=== PATIENT | male | born 1945 | race Caucasian/White ===

== ENCOUNTER → 2019-04-10 15:59 | Outpatient (CLI) | payer MEDICARE, MEDICAID, SELFPAY ==
[2019-04-10 16:56] LABS: Add Manual Diff / Slide Review NO; Basophils Absolute Auto 100 /uL (0-100); Basophils Percent Auto 1.3 % (0-2); Eosinophils Absolute Auto 100 /uL (0-450); Hematocrit 41.1 % (41-53); Hemoglobin 14.1 g/dL (13.5-17.5); Lymphocytes Absolute Auto 1000 /uL (1100-4500); Lymphocytes Percent Auto 24.5 % (25-40); Mean Corpuscular HGB Conc 34.3 % (30-36); Mean Corpuscular Hemoglobin 30.4 PG (26-34); Mean Corpuscular Volume 88.7 fL (80-100); Monocytes Absolute Auto 400 /uL (0-900); Monocytes Percent Auto 10.7 % (3-14); Neutrophils Absolute Auto 2500 /uL (1500-7000); Neutrophils Percent Auto 60.5 % (50-75); Platelet Count 163 X10^3/uL (150-400); Red Blood Cell Count 4.63 X10^6/uL (4.5-5.9); Red Cell Distribution Width 13.5 % (11.6-14.8); White Blood Cell Count 4.1 X10^3/uL (4.5-11.0)
[2019-04-10 17:47] LABS: Alanine Aminotransferase 12 IU/L (21-72); Albumin 3.8 g/dL (3.5-5.0); Albumin Globulin Ratio 1.6 (1.0-2.8); Alkaline Phosphatase 91 U/L (38-126); Aspartate Aminotransferase 21 IU/L (17-59); BUN Creatinine Ratio 18.8 (6-22); Bilirubin Total 0.8 mg/dL (0.2-1.3); Blood Urea Nitrogen 15 mg/dL (9-20); Calcium 9.4 mg/dL (8.4-10.2); Carbon Dioxide 33 mmol/L (22-32); Chloride 103 mmol/L (98-107); Estimated Glomerular Filt Rate > 60.0 mL/min (>60); Globulin 2.4 g/dL (1.7-4.1); Glucose 65 mg/dL (80-110); HEMOLYSIS < 15 (0-50); Potassium 4.8 mmol/L (3.4-5.1); Sodium 142 mmol/L (137-145); Total Protein 6.2 g/dL (6.3-8.2)
[2019-04-10 18:16] LABS: Thyroid Stimulating Hormone 2.21 uIU/mL (0.47-4.68)
== END ==
PROVIDERS: Family Provider Family Medicine; PCP Family Medicine; Visit Provider Family Medicine
DX: E03.9 Hypothyroidism, unspecified (principal)
CPT/HCPCS: 36415; 80053; 84443; 85025

== ENCOUNTER → 2020-05-25 12:07 | Outpatient (CLI) | payer MEDICARE, MEDICAID, SELFPAY ==
[2020-05-25 14:22] LABS: Thyroid Stimulating Hormone 2.73 uIU/mL (0.47-4.68)
== END ==
PROVIDERS: Family Provider Family Medicine; PCP Family Medicine; Referring Provider Family Medicine; Visit Provider Family Medicine
DX: E03.9 Hypothyroidism, unspecified (principal)
CPT/HCPCS: 36415; 84443

== ENCOUNTER → 2021-02-09 10:15 | Outpatient (CLI) | payer MEDICARE, MEDICAID, SELFPAY | PROVIDERS: Family Provider Family Medicine; PCP Family Medicine; Referring Provider Ophthalmology; Visit Provider Ophthalmology | DX: H10.021 Other mucopurulent conjunctivitis, right eye (principal) | CPT/HCPCS: 87070; 87077; 87205 ==

== ENCOUNTER → 2021-06-10 08:52 | Outpatient (CLI) | payer MEDICARE, MEDICAID, SELFPAY ==
[2021-06-10 09:44] LABS: Add Manual Diff / Slide Review NO; Basophils Absolute Auto 100 /uL (0-100); Basophils Percent Auto 1.2 % (0-2); Eosinophils Absolute Auto 100 /uL (0-450); Eosinophils Percent Auto 1.5 % (2-4); Hematocrit 42.2 % (41-53); Hemoglobin 14.3 g/dL (13.5-17.5); Lymphocytes Absolute Auto 1000 /uL (1100-4500); Lymphocytes Percent Auto 17.1 % (25-40); Mean Corpuscular HGB Conc 33.8 % (30-36); Mean Corpuscular Hemoglobin 30.4 PG (26-34); Mean Corpuscular Volume 89.8 fL (80-100); Monocytes Absolute Auto 500 /uL (0-900); Monocytes Percent Auto 8.1 % (3-14); Neutrophils Absolute Auto 4200 /uL (1500-7000); Neutrophils Percent Auto 72.1 % (50-75); Platelet Count 159 X10^3/uL (150-400); Red Cell Distribution Width 13.8 % (11.6-14.8); White Blood Cell Count 5.8 X10^3/uL (4.5-11.0)
[2021-06-10 10:02] LABS: Alanine Aminotransferase 12 IU/L (<50); Albumin 3.8 g/dL (3.5-5.0); Albumin Globulin Ratio 1.5 (1.0-2.8); Alkaline Phosphatase 93 U/L (38-126); Aspartate Aminotransferase 25 IU/L (17-59); BUN Creatinine Ratio 19.8 (6-22); Bilirubin Total 0.8 mg/dL (0.2-1.3); Blood Urea Nitrogen 17 mg/dL (9-20); Calcium 9.2 mg/dL (8.4-10.2); Carbon Dioxide 31 mmol/L (22-32); Chloride 106 mmol/L (98-107); Cholesterol 97 mg/dL (140-199); Estimated Glomerular Filt Rate > 60.0 mL/min (>60); Globulin 2.5 g/dL (1.7-4.1); Glucose 46 mg/dL (80-110); HDL Cholesterol 49 mg/dL (40-60); HEMOLYSIS 15 (0-50); LDL Cholesterol Calculated 38 mg/dL (<100); Potassium 3.8 mmol/L (3.4-5.1); Sodium 141 mmol/L (137-145); Total Protein 6.3 g/dL (6.3-8.2); Triglycerides 50 mg/dL (35-150)
[2021-06-10 10:48] LABS: TSH w/ Reflex to FT4 4.28 uIU/mL (0.47-4.68)
== END ==
PROVIDERS: Family Provider Family Medicine; PCP Family Medicine; Referring Provider Family Medicine; Visit Provider Family Medicine
DX: E03.9 Hypothyroidism, unspecified (principal); Z13.220 Encounter for screening for lipoid disorders; Z76.89 Persons encountering health services in other specified circumstances
CPT/HCPCS: 36415; 80053; 80061; 84443; 85025

== ENCOUNTER → 2023-07-06 09:53 | Outpatient (CLI) | payer MEDICARE, MEDICAID, SELFPAY ==
[2023-07-06 10:32] LABS: Add Manual Diff / Slide Review NO; Basophils Absolute Auto 100 /uL (0-100); Basophils Percent Auto 1.1 % (0-2); Eosinophils Absolute Auto 100 /uL (0-450); Eosinophils Percent Auto 2.3 % (2-4); Hematocrit 41.1 % (41-53); Hemoglobin 14.2 g/dL (13.5-17.5); Lymphocytes Absolute Auto 900 /uL (1100-4500); Lymphocytes Percent Auto 15.5 % (25-40); Mean Corpuscular HGB Conc 34.5 % (30-36); Mean Corpuscular Hemoglobin 31.2 PG (26-34); Mean Corpuscular Volume 90.5 fL (80-100); Monocytes Absolute Auto 500 /uL (0-900); Monocytes Percent Auto 7.9 % (3-14); Neutrophils Absolute Auto 4400 /uL (1500-7000); Neutrophils Percent Auto 73.2 % (50-75); Platelet Count 161 X10^3/uL (150-400); Red Blood Cell Count 4.54 X10^6/uL (4.5-5.9); Red Cell Distribution Width 13.7 % (11.6-14.8)
[2023-07-06 11:08] LABS: Appearance Urine UA CLEAR; Bilirubin Urine UA NEGATIVE (NEGATIVE); Color Urine UA YELLOW; Glucose Urine UA NEGATIVE (Negative); Ketones Urine UA NEGATIVE (NEGATIVE); Leukocyte Esterase Urine UA NEGATIVE (NEGATIVE); Nitrite Urine UA NEGATIVE (Negative); Occult Blood Urine UA NEGATIVE (Negative); Protein Urine UA NEGATIVE (Negative); Specific Gravity Urine UA 1.015 (1.000-1.035); Urobilinogen Urine UA 0.2 E.U./dL (0.2)
[2023-07-06 11:31] LABS: Bacteria Urine None Seen; Culture Indicated Urine Cult Not Indicated; RBC Urine None Seen (0-5/HPF); Squamous Epithelial Cell Urine None Seen (0-5/HPF); WBC Urine None Seen (0-5/HPF)
[2023-07-06 11:38] LABS: Alanine Aminotransferase 16 IU/L (<50); Albumin 3.8 g/dL (3.5-5.0); Albumin Globulin Ratio 1.5 (1.0-2.8); Alkaline Phosphatase 100 U/L (38-126); Aspartate Aminotransferase 22 IU/L (17-59); BUN Creatinine Ratio 20.9 (6-22); Bilirubin Total 0.6 mg/dL (0.2-1.3); Blood Urea Nitrogen 18 mg/dL (9-20); Calcium 9.4 mg/dL (8.4-10.2); Carbon Dioxide 30 mmol/L (22-32); Chloride 108 mmol/L (98-107); Estimated Glomerular Filt Rate > 60 mL/min (>60); Globulin 2.5 g/dL (1.7-4.1); HEMOLYSIS < 15 (0-50); Lipase 157 U/L (23-300); Potassium 3.8 mmol/L (3.4-5.1); Sodium 141 mmol/L (137-145); Total Protein 6.3 g/dL (6.3-8.2)
[2023-07-06 11:54] LABS: Glucose 37 mg/dL (80-110)
[2023-07-06 11:59] LABS: Prostate Specific Antigen Scrn 1.01 ng/mL (0.1-4.0)
[2023-07-06 12:13] LABS: TSH w/ Reflex to FT4 3.69 uIU/mL (0.47-4.68)
[2023-07-06 12:37] LABS: Hemoglobin A1C% w Est Avg Glu < 4.0 % (4.0-6.0)
[2023-07-09 09:06] LABS: Insulin Level Total 13.8 uIU/mL (2.6-24.9)
[2023-07-12 09:51] LABS: Ketones (Beta-Hydroxybutyrate) 0.01 mmol/L (<0.27)
== END ==
PROVIDERS: Family Provider Family Medicine; PCP Family Medicine; Referring Provider Pediatrics; Visit Provider Pediatrics
DX: E16.2 Hypoglycemia, unspecified (principal); F81.9 Developmental disorder of scholastic skills, unspecified; Z13.220 Encounter for screening for lipoid disorders; E03.9 Hypothyroidism, unspecified; R73.9 Hyperglycemia, unspecified; H40.9 Unspecified glaucoma; Z12.5 Encounter for screening for malignant neoplasm of prostate
CPT/HCPCS: 36415; 80053; 81001; 82009; 83036; 83525; 83690; 84443; 85025; G0103

== ENCOUNTER → 2023-07-14 09:27 | Outpatient (CLI) | payer MEDICARE, MEDICAID, SELFPAY ==
[2023-07-14 11:10] LABS: Free T3, Triiodothyronine Free 3.62 pg/mL (2.77-5.27); Free T4, Direct Thyroxine 1.02 ng/dL (0.78-2.19)
[2023-07-14 11:24] LABS: Cortisol AM (Before 10AM) 2.81 ug/dL (4.46-22.7)
== END ==
PROVIDERS: Family Provider Family Medicine; PCP Family Medicine; Referring Provider Pediatrics; Visit Provider Pediatrics
DX: E03.9 Hypothyroidism, unspecified (principal); E16.2 Hypoglycemia, unspecified; F81.9 Developmental disorder of scholastic skills, unspecified; Z13.220 Encounter for screening for lipoid disorders
CPT/HCPCS: 36415; 82533; 84439; 84481

== ENCOUNTER 2024-03-11 11:18 | Inpatient (IN) | payer MEDICARE, MEDICAID, SELFPAY ==
[2024-03-11] VITALS (41 sets, daily range): BP systolic 132–183; BP diastolic 65–107; PULSE 59–140; RESP 10–46; TEMP 27–37.5; O2SAT 33–100; BMI 27.1
--- NOTE | 2024-03-11 11:40 | ED.GENADULT ---
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), medical power of staff attorney niece is predominant historian, multiple family members with recent upper respiratory symptoms, patient noted to have cough at home for the last 5 days, this morning seems to be having a really hard time breathing, arrival in respiratory distress, hypoxia, not usually on oxygen Per niece at bedside, patient has advanced directives, DNR/DNI, they are comfortable with respiratory support measures short of mechanical ventilation Related Data Home Medications Medication Instructions Recorded Confirmed brimonidine 0.2 %-timolol 0.5 % 1 drp ophthalmic (eye) BID Glaucoma 07/21/23 03/11/24 eye drops (Combigan) dorzolamide 2 % eye drops 1 drp EYE-BOTH TID 07/21/23 03/11/24 latanoprost 0.005 % eye drops 1 drp ophthalmic (eye) BEDTIME 07/21/23 03/11/24 (Xalatan) netarsudil 0.02 % eye drops 1 drp ophthalmic (eye) BEDTIME 07/21/23 03/11/24 (Rhopressa) Glaucoma Previous Rx's Medication Instructions Recorded glucagon 3 mg/actuation nasal spray 3 mg intranasal ONCE #2 ea 07/06/23 levothyroxine 25 mcg tablet 25 mcg PO DAILY #90 tabs 11/23/23 Allergies Allergy/AdvReac Type Severity Reaction Status Date / Time iodine [IODINE] Allergy Unknown Verified 07/21/23 11:47 shellfish derived Allergy Unknown Verified 07/21/23 11:47 [SHELLFISH DERIVED] Patient History Medical History Hyperglycemia Hypoglycemia Physician orders for life-sustaining treatment (POLST) form indicates patient wish for pc-zup-loabsqfmyeg status Cognitive developmental delay Screening for hyperlipidemia Hypothyroidism (acquired) History of blood transfusion (~2009) Partial blindness (1945) Developmental disorder (1945) Hemorrhoids (~2009) Glaucoma (1945) Hearing loss (1945) Surgical History History of colonoscopy (01/12/12) History of eye surgery Family History Father Diabetes mellitus Mother Cancer Leukemia Hypertension Sister Age: 80 Stroke Hemorrhagic stroke Melanoma Sister No problems noted. Sister No problems noted. Social History household members: family Smoking Status: Never smoker Smoking Status: Never smoker Exam Narrative Exam Narrative: GENERAL: History of developmental delay, unclear verbal baseline. Arriving in severe respiratory distress. HEAD: Atraumatic. Normocephalic. EYES: Right prosthetic eye noted, left eye with severe glaucoma, near blindness per knees. No scleral icterus. No injection or drainage. Hearing aids in place. ENT: Nose without bleeding, purulent drainage. Throat without erythema, tonsillar hypertrophy or exudate. Airway patent. NECK: Trachea midline. Non tender CARDIOVASCULAR: Fast rate regular rhythm without murmurs, gallops, or rubs. RESPIRATORY: Wheezes bilateral, with some bibasilar crackles, increased work of breathing. But alert looking around GASTROINTESTINAL: Abdomen soft, non-tender, nondistended. EXTREMITIES: No edema or joint tenderness. No bilateral lower extremity edema. BACK: Nontender without deformity or crepitance. No flank tenderness. NEURO: AOx3. Moving extremities but not to command, history of deafness and near blindness noted, history of developmental delay noted SKIN: No rash or erythema of visible areas Initial Vital Signs Initial Vital Signs: Vital Signs Temperature 98.1 F 03/11/24 11:40 Pulse Rate 140 H 03/11/24 11:40 Respiratory Rate 32 H 03/11/24 11:40 Blood Pressure 175/107 H 03/11/24 11:40 Pulse Oximetry 85 L 03/11/24 11:40 Oxygen Delivery Method Room Air 03/11/24 11:40 Course Orders Ordered: ED Orders 03/11/24 11:40 Complete Blood Count AUTO DIFF Stat Comprehensive Metabolic Panel Stat Lactate (Lactic Acid) Stat Lipase Stat Troponin & CK Cardiac Panel Stat BiPAP Ventilatory Support RT PROTOCOL 03/11/24 11:45 Arterial Blood Gas Stat 03/11/24 11:46 XR chest 1V Stat Blood Culture Stat 03/11/24 11:53 Respiratory Panel (Film Array) Stat Albuterol (Albuterol 2.5 Mg/3 Ml Neb (Adult)) 2.5 mg INH [id number] PRN PRN Reason: Shortness Of Breath Famotidine (Famotidine 20 Mg/2 Ml Vial) 20 mg IV Q24H [facility] Heparin Sodium (Porcine) (Heparin 5,000 Unit/Ml Vial) 5,000 unit SUBCUT BID [facility] Last Admin: 03/11/24 14:16 Dose: 5,000 unit Documented By: IVORY Dextrose/Sodium Chloride (Dextrose 5%-0.9% Ns) 1,000 mls @ 100 mls/hr IV CONT [facility] Last Admin: 03/11/24 14:16 Dose: 100 mls/hr Documented By: IVORY Naloxone HCl (Naloxone 0.4 Mg/Ml Vial) 0.2 mg IV Q2MIN PRN PRN Reason: Opiate Reversal Discontinued Medications Albuterol (Albuterol 2.5 Mg/3 Ml Neb (Adult)) 2.5 mg INH Q20M [facility] Stop: 03/11/24 12:56 Last Admin: 03/11/24 13:02 Dose: 2.5 mg Documented By: Admin: 03/11/24 12:37 Dose: 2.5 mg Documented By: Admin: 03/11/24 12:17 Dose: 2.5 mg Documented By: FRANKIE Albuterol/Ipratropium (Albuterol/Ipratropium 3 Ml Ampul) 6 ml INH NOW ONE Stop: 03/11/24 11:39 Last Admin: 03/11/24 11:42 Dose: 6 ml Documented By: FRANKIE Sodium Chloride (Normal Saline 0.9%) 1,000 mls @ 150 mls/hr IV CONT [facility] Last Admin: 03/11/24 18:28 Dose: Not Given Documented By: IVORY Ceftriaxone Sodium 1,000 mg/ (Sodium Chloride) 100 mls @ 200 mls/hr IV NOW ONE Stop: 03/11/24 12:23 Last Infusion: 03/11/24 18:26 Dose: Infused Documented By: Admin: 03/11/24 12:39 Dose: 200 mls/hr Documented By: NADEEN Azithromycin 500 mg/ Dextrose 250 mls @ 250 mls/hr IV NOW ONE Stop: 03/11/24 12:24 Last Infusion: 03/11/24 18:26 Dose: Infused Documented By: Admin: 03/11/24 12:41 Dose: 250 mls/hr Documented By: NADEEN Sodium Chloride (Normal Saline 0.9%) 1,000 mls @ 1,000 mls/hr IV BOLUS ONE Stop: 03/11/24 13:24 Last Infusion: 03/11/24 18:26 Dose: Infused Documented By: Admin: 03/11/24 12:41 Dose: 1,000 mls/hr Documented By: NADEEN Vital Signs Vital signs: Vital Signs - 8 hr 03/11/24 12:17 03/11/24 12:30 03/11/24 12:31 Temperature Pulse Rate 116 H Respiratory Rate 30 H Blood Pressure 146/68 H Pulse Oximetry 99 Oxygen Delivery Method BiPAP Fraction of Inspired Oxygen 60 03/11/24 12:31 03/11/24 12:37 03/11/24 12:59 Temperature Pulse Rate 114 H 109 H Respiratory Rate 28 H 26 H Blood Pressure Pulse Oximetry 99 100 97 Oxygen Delivery Method BiPAP BiPAP BiPAP Fraction of Inspired Oxygen 03/11/24 13:00 03/11/24 13:00 Temperature 99.5 F Pulse Rate 110 H Respiratory Rate 26 H Blood Pressure 142/70 H 152/94 H Pulse Oximetry 97 Oxygen Delivery Method Fraction of Inspired Oxygen Medical Decision Making Lab Data 03/11/24 11:40 03/11/24 11:40 Labs: Lab Results 03/11/24 03/11/24 03/11/24 Range/Units 11:40 11:45 11:53 WBC 11.6 H (4.5-11.0) X10^3/uL RBC 4.80 (4.5-5.9) X10^6/uL Hgb 15.3 (13.5-17.5) g/dL Hct 45.5 (41-53) % MCV 94.7 (80-100) fL MCH 31.8 (26-34) PG MCHC 33.5 (30-36) % RDW 13.6 (11.6-14.8) % Plt Count 227 (150-400) X10^3/uL Neut % (Auto) 75.4 H (50-75) % Lymph % (Auto) 13.9 L (25-40) % Tompkins % (Auto) 9.7 (3-14) % Eos % (Auto) 0.4 L (2-4) % Baso % (Auto) 0.6 (0-2) % Neut # (Auto) 8700 H (2896-4609) /uL Lymph # (Auto) 1600 (9725-0808) /uL Tompkins # (Auto) 1100 H (0-900) /uL Eos # (Auto) 0 (0-450) /uL Baso # (Auto) 100 (0-100) /uL ABG Sample Site Right radial ABG pH 7.28 L* (7.35-7.45) ABG pCO2 43.4 (35-45) mmHg ABG pO2 61 L (80-100) mmHg ABG HCO3 21 L (23-27) mmol/L ABG Total CO2 22 L (23-27) mmol/L ABG O2 Saturation 88 L (95-100) % ABG Base Excess -6.0 L (-2-3) mmol/L FiO2 52 Sodium 138 (137-145) mmol/L Potassium 3.8 (3.4-5.1) mmol/L Chloride 104 (98-107) mmol/L Carbon Dioxide 24 (22-32) mmol/L BUN 24 H (9-20) mg/dL Creatinine 1.21 (0.66-1.25) mg/dL Estimated GFR > 60 (>60) mL/min BUN/Creatinine Ratio 19.8 (6-22) Glucose 303 H (80-110) mg/dL Lactate 5.1 H* (0.7-2.1) mmol/L Calcium 8.6 (8.4-10.2) mg/dL Total Bilirubin 1.4 H (0.2-1.3) mg/dL AST 48 (17-59) IU/L ALT 24 (<50) IU/L Alkaline Phosphatase 118 (38-126) U/L Total Creatine Kinase 88 (55-170) U/L Troponin I 0.104 H (0.01-0.034) ng/mL Total Protein 6.6 (6.3-8.2) g/dL Albumin 4.0 (3.5-5.0) g/dL Globulin 2.6 (1.7-4.1) g/dL Albumin/Globulin Ratio 1.5 (1.0-2.8) Lipase 120 (23-300) U/L Chlamy pneumoniae PCR Not detected (Not Detect) Adenovirus (PCR) Not detected (Not Detect) B.parapertussis DNA PCR Not detected (Not Detecte) Coronavirus OC43 (PCR) Not detected (Not Detect) Coronavirus HKU1 (PCR) Not detected (Not Detect) Coronavirus 229E (PCR) Not detected (Not Detect) SARS-CoV-2 (PCR) Not detected (Not Detecte) Coronavirus NL63 (PCR) Not detected (Not Detect) Human Metapneumovir PCR Detected H (Not Detect) Influenza Type A (PCR) Not detected (Not Detect) Influenza Type B (PCR) Not detected (Not Detect) M. pneumoniae (PCR) Not detected (Not Detect) Parainfluenza 1 (PCR) Not detected (Not Detect) Parainfluenza 2 (PCR) Not detected (Not Detect) Parainfluenza 3 (PCR) Not detected (Not Detect) Parainfluenza 4 (PCR) Not detected (Not Detect) RSV (PCR) Not detected (Not Detect) Entero/Rhino (PCR) Not detected (Not Detect) Imaging Data Chest x-ray: Radiologist's Impression: [address] [address] XRay Report Signed Patient: Itz Arnett MR#: [id number] : 1945 Acct:[id number] Age/Sex: 78 / M Date of Service: 03/11/24 Loc: [facility] Accession Number: [id number] Procedure: XR chest 1V Ordering Provider: Mario Reilly MD PROCEDURE: XR CHEST 1V INDICATIONS: chest pain TECHNIQUE: One view of the chest was acquired. COMPARISON: [facility], CHEST 2 VIEW, 04/16/2013, 12:40. FINDINGS: Surgical changes and devices: None. Lungs and pleura: Diffuse bilateral lung disease. No pleural effusions or pneumothorax. Mediastinum: Mediastinal contours appear normal. Heart size is normal. Bones and chest wall: No suspicious bony lesions. Overlying soft tissues appear unremarkable. IMPRESSION: Diffuse bilateral lung disease. Findings concerning for infectious process. Approved by: Paula Lubin M.D.,Ph.D. on 03/11/2024 at 12:12 [facility] Narrative Medical decision making narrative: 78-year-old male with developmental delay ( encephalopathy per knees, mother had rubella, has had near deafness decreased hearing both ears, prosthetic right eye, severe glaucoma left eye, able to communicate with niece in their own kind of internal family language), no known heart or lung problems, 5 days duration cough, increasing shortness of breath this morning, presenting in respiratory distress, hypoxia, increased work of breathing. DNR/DNI noted per medical [id number] nurse at bedside, however they are comfortable with other supportive measures including BiPAP noninvasive ventilation support if needed. SVN continuous albuterol/ipratropium, IV Solu-Medrol 125 mg, ABG requested, labs pending, respiratory swab requested. Respiratory therapist at bedside, consider BiPAP trial. ABG pending. ABG on non-rebreather sent, pH 7.282, pCO2 43.4, PaO2 61, base excess -6, bicarbonate 20, 88% Chest x-ray bilateral patchy infiltrates, COVID another respiratory swab results still pending. Blood cultures requested, IV ceftriaxone, IV azithromycin. Lactate 5.1 noted, blood cultures and antibiotics initiated, IV fluid bolus. Likely admission, patient/guardian aware Respiratory panel results still pending. Case discussed with hospitalist Dr. Clifton, accepts patient for admission to inpatient/ICU Respiratory panel negative for COVID and influenza, positive for human metapneumovirus noted. Added to admission diagnosis list Critical Care Time Critical Care Time Critical Care Time: Yes Total Critical Care Time: 45 Attestation: The high probability of a clinically significant, sudden or life threatening deterioration of the [cardiopulmonary] system(s) required my full and direct attention, intervention and personal management. The aggregate critical care time was [45] minutes. This time is in addition to time spent performing reported procedures but includes the following: [x] Data Review and interpretation [x] Patient assessment and monitoring of vital signs [x] Documentation [x] Medication orders and management Discharge Plan Departure Patient Disposition: Admitted As Inpatient Clinical Impression: Acute respiratory distress, Pneumonia, History of developmental delay, Hard of hearing, Nearly blind in one eye, Prosthetic eye globe, Severe sepsis, Hypoxia, Human metapneumovirus pneumonia Admit Date/Time: 03/11/24 13:00 Admit Provider: Michael Meza
[2024-03-11] MEDS: ALBUTEROL/IPRATROPIUM 3 ML AMPUL 6 ML INH (11:42)
--- NOTE | 2024-03-11 11:46 | DI.RAD.S_ITS ---
PROCEDURE: XR CHEST 1V INDICATIONS: chest pain TECHNIQUE: One view of the chest was acquired. COMPARISON: [facility], , CHEST 2 VIEW, 04/16/2013, 12:40. FINDINGS: Surgical changes and devices: None. Lungs and pleura: Diffuse bilateral lung disease. No pleural effusions or pneumothorax. Mediastinum: Mediastinal contours appear normal. Heart size is normal. Bones and chest wall: No suspicious bony lesions. Overlying soft tissues appear unremarkable. IMPRESSION: Diffuse bilateral lung disease. Findings concerning for infectious process. Approved by: Paula Lubin M.D.,Ph.D. on 03/11/2024 at 12:12
[2024-03-11 11:59] LABS: Add Manual Diff / Slide Review NO; Basophils Absolute Auto 100 /uL (0-100); Basophils Percent Auto 0.6 % (0-2); Eosinophils Absolute Auto 0 /uL (0-450); Eosinophils Percent Auto 0.4 % (2-4); Hematocrit 45.5 % (41-53); Hemoglobin 15.3 g/dL (13.5-17.5); Lymphocytes Absolute Auto 1600 /uL (1100-4500); Lymphocytes Percent Auto 13.9 % (25-40); Mean Corpuscular HGB Conc 33.5 % (30-36); Mean Corpuscular Hemoglobin 31.8 PG (26-34); Mean Corpuscular Volume 94.7 fL (80-100); Monocytes Absolute Auto 1100 /uL (0-900); Monocytes Percent Auto 9.7 % (3-14); Neutrophils Absolute Auto 8700 /uL (1500-7000); Neutrophils Percent Auto 75.4 % (50-75); Platelet Count 227 X10^3/uL (150-400); Red Cell Distribution Width 13.6 % (11.6-14.8); White Blood Cell Count 11.6 X10^3/uL (4.5-11.0)
[2024-03-11 12:13] LABS: Alanine Aminotransferase 24 IU/L (<50); Albumin Globulin Ratio 1.5 (1.0-2.8); Alkaline Phosphatase 118 U/L (38-126); Aspartate Aminotransferase 48 IU/L (17-59); BUN Creatinine Ratio 19.8 (6-22); Bilirubin Total 1.4 mg/dL (0.2-1.3); Blood Urea Nitrogen 24 mg/dL (9-20); Calcium 8.6 mg/dL (8.4-10.2); Carbon Dioxide 24 mmol/L (22-32); Chloride 104 mmol/L (98-107); Creatine Kinase 88 U/L (55-170); Estimated Glomerular Filt Rate > 60 mL/min (>60); Globulin 2.6 g/dL (1.7-4.1); Glucose 303 mg/dL (80-110); HEMOLYSIS 44 (0-50); Lipase 120 U/L (23-300); Potassium 3.8 mmol/L (3.4-5.1); Sodium 138 mmol/L (137-145); Total Protein 6.6 g/dL (6.3-8.2)
[2024-03-11 12:17] LABS: Lactate (Lactic Acid) 5.1 mmol/L (0.7-2.1)
[2024-03-11] MEDS: ALBUTEROL 2.5 MG/3 ML NEB (ADULT) INH ×3 (12:17→13:02)
[2024-03-11 12:24] LABS: Troponin I 0.104 ng/mL (0.01-0.034)
[2024-03-11 12:28] LABS: PCO2 ABG 43.4 mmHg (35-45); PO2 ABG 61 mmHg (80-100); pH ABG 7.28 (7.35-7.45)
[2024-03-11 12:29] LABS: Allen Test for ABG Passed? Yes, Passed; Blood Gas Collection Site Right Radial; Fractionated Inspired Oxygen 52; HCO3 ABG 21 mmol/L (23-27); Oxygen Saturation ABG 88 % (95-100); TCO2 ABG 22 mmol/L (23-27)
[2024-03-11] MEDS: cefTRIAXone 1,000 MG in SODIUM CHLORIDE 0.9% 100 ML 200 MG IV (12:39)
[2024-03-11] MEDS: AZITHROMYCIN 500 MG in DEXTROSE 5% IN WATER 250 ML 250 MG IV (12:41)
[2024-03-11] MEDS: SODIUM CHLORIDE 0.9% 1,000 ML 1000 ML IV (12:41)
[2024-03-11 13:06] LABS: Adenovirus Not Detected (Not Detect); B. parapertussis Not Detected (Not Detecte); Bordetella pertussis Not Detected (Not Detect); Chlamydophila pneumoniae Not Detected (Not Detect); Coronavirus 229E Not Detected (Not Detect); Coronavirus HKU1 Not Detected (Not Detect); Coronavirus NL 63 Not Detected (Not Detect); Coronavirus OC43 Not Detected (Not Detect); Human Metapneumovirus Detected (Not Detect); Human Rhinovirus/Enterovirus Not Detected (Not Detect); Influenza A Not Detected (Not Detect); Influenza B Not Detected (Not Detect); Mycoplasma pneumoniae Not Detected (Not Detect); Parainfluenza Virus 1 Not Detected (Not Detect); Parainfluenza Virus 2 Not Detected (Not Detect); Parainfluenza Virus 3 Not Detected (Not Detect); Parainfluenza Virus 4 Not Detected (Not Detect); Respiratory Syncytial Virus Not Detected (Not Detect); SARS- CoV-2 Not Detected (Not Detecte)
[2024-03-11 13:31] LABS: Reflexed Lactate in 2 Hours Y
--- NOTE | 2024-03-11 13:53 | P.HP_ITS ---
History of Present Illness History of Present Illness Date Patient Seen: 03/11/24 Time Patient Seen: 13:00 Chief complaint: Diff Breathing, Resp Inf Narrative: The patient is brought in by his family member who is his guardian and power of deputy county attorney. He was a 78-year-old male with history of developmental delay. He became ill with a cold and upper respiratory symptoms about 5 days ago. Initially he had a cough and no dyspnea. His energy level is fairly normal for the next 2 days. Over the last day and a half he has had progressive dyspnea and more fatigue. He also had audible wheezing prompting a visit to the urgent care 2 days ago. He was given steroids there and a breathing treatment and discharged with steroids and a bronchodilator. He has had worsening fatigue and respiratory status over the last 24 hours. He has had cough which has been productive of phlegm and audible wheezing. He was brought to the urgent care today but enroute became much more distressed and family rerouted to the emergency department. There he was placed on BiPAP. His guardian does confirm that he was do not resuscitate and do not intubate. She was okay with BiPAP and other supportive measures such as antibiotics and IV fluids. In the emergency department, he improved dramatically on BiPAP and was given bronchodilators. Upon being transferred to CCU he was very comfortable and relaxed on BiPAP and in no distress. PCR was positive for metapneumovirus and he was started on ceftriaxone and azithromycin for possible bacterial pneumonia. Chest x-ray revealed bilateral infiltrates. He was very hard of hearing and essentially blind and does not provide any history. No additional review of systems is available other than noting he has not had fevers or diarrhea. [facility] Medical History Hyperglycemia Hypoglycemia Physician orders for life-sustaining treatment (POLST) form indicates patient wish for nk-sdd-xsnygbjzdzo status Cognitive developmental delay Screening for hyperlipidemia Hypothyroidism (acquired) History of blood transfusion (~2009) Partial blindness (1945) Developmental disorder (1945) Hemorrhoids (~2009) Glaucoma (1945) Hearing loss (1945) Surgical History History of colonoscopy (03/29/12) History of eye surgery Family History Father Diabetes mellitus Mother Cancer Leukemia Hypertension Sister Age: 80 Stroke Hemorrhagic stroke Melanoma Sister No problems noted. Sister No problems noted. Social History household members: family Smoking Status: Never smoker Meds Home Medications and Allergies Home Medications Medication Instructions Recorded Confirmed Type glucagon 3 mg/actuation nasal spray 3 mg intranasal ONCE #2 ea 07/06/23 03/11/24 Rx brimonidine 0.2 %-timolol 0.5 % 1 drp ophthalmic (eye) BID Glaucoma 07/21/23 03/11/24 History eye drops (Combigan) dorzolamide 2 % eye drops 1 drp EYE-BOTH TID 07/21/23 03/11/24 History latanoprost 0.005 % eye drops 1 drp ophthalmic (eye) BEDTIME 07/21/23 03/11/24 History (Xalatan) netarsudil 0.02 % eye drops 1 drp ophthalmic (eye) BEDTIME 07/21/23 03/11/24 History (Rhopressa) Glaucoma levothyroxine 25 mcg tablet 25 mcg PO DAILY #90 tabs 11/23/23 03/11/24 Rx Allergies Allergy/AdvReac Type Severity Reaction Status Date / Time iodine [IODINE] Allergy Unknown Verified 07/21/23 11:47 shellfish derived Allergy Unknown Verified 07/21/23 11:47 [SHELLFISH DERIVED] Review of Systems Review of Systems Narrative: ROS not obtainable otherwise due to his hearing loss and DD. Exam Vital Signs (past 8 hours): - 03/11/24 11:40 03/11/24 11:42 03/11/24 11:42 Temperature 98.1 F Pulse Rate 140 H 135 H 139 H Respiratory Rate 32 H 43 H 46 H Blood Pressure 175/107 H Pulse Oximetry 85 L 81 L 79 L Oxygen Delivery Method Room Air Aerosol Mask Oxygen Flow Rate 8 Fraction of Inspired Oxygen 03/11/24 11:43 03/11/24 11:43 03/11/24 11:56 Temperature Pulse Rate 134 H Respiratory Rate 43 H Blood Pressure 175/107 H 175/107 H Pulse Oximetry 79 L Oxygen Delivery Method Simple Mask Oxygen Flow Rate 15 Fraction of Inspired Oxygen 50 03/11/24 12:00 03/11/24 12:00 03/11/24 12:17 Temperature Pulse Rate 127 H Respiratory Rate 45 H Blood Pressure 183/98 H Pulse Oximetry 93 Oxygen Delivery Method BiPAP BiPAP Oxygen Flow Rate Fraction of Inspired Oxygen 60 03/11/24 12:30 03/11/24 12:31 03/11/24 12:31 Temperature Pulse Rate 116 H 114 H Respiratory Rate 30 H 28 H Blood Pressure 146/68 H Pulse Oximetry 99 99 Oxygen Delivery Method BiPAP BiPAP Oxygen Flow Rate Fraction of Inspired Oxygen 03/11/24 12:37 03/11/24 12:59 03/11/24 13:00 Temperature Pulse Rate 109 H Respiratory Rate 26 H Blood Pressure 142/70 H Pulse Oximetry 100 97 Oxygen Delivery Method BiPAP BiPAP Oxygen Flow Rate Fraction of Inspired Oxygen 03/11/24 13:00 03/11/24 13:02 Temperature 99.5 F Pulse Rate 110 H Respiratory Rate 26 H Blood Pressure 152/94 H 142/70 H Pulse Oximetry 97 Oxygen Delivery Method Oxygen Flow Rate Fraction of Inspired Oxygen 55 Fraction of Inspired Oxygen 55 Oxygen Delivery Method BiPAP Oxygen Flow Rate 15 Narrative Exam Narrative: NAD, alert and calm on BiPAP. Normocephalic skull, EOMI, anicteric sclera, symmetric pupils. Oropharynx unremarkable, no droop. Neck supple, midline trachea, no adenopathy. Lungs notable for some scattered rhonchi and wheezing. He has a normal rate and effort on BiPAP. Heart regular, no murmur gallop or rub. Abdomen is soft, non distended and non tender. Extremities are free of edema. Skin is free of rash or lesions. Joints are not swollen or deformed. Objective Imaging Chest x-ray: Radiologist's impression: Diffuse bilateral lung disease. Findings concerning for infectious process. Labs 03/11/24 11:40 03/11/24 11:40 Labs: Laboratory Results - last 24 hr 03/11/24 03/11/24 03/11/24 11:40 11:45 11:53 WBC 11.6 H RBC 4.80 Hgb 15.3 Hct 45.5 MCV 94.7 MCH 31.8 MCHC 33.5 RDW 13.6 Plt Count 227 Neut % (Auto) 75.4 H Lymph % (Auto) 13.9 L Blair % (Auto) 9.7 Eos % (Auto) 0.4 L Baso % (Auto) 0.6 Neut # (Auto) 8700 H Lymph # (Auto) 1600 Blair # (Auto) 1100 H Eos # (Auto) 0 Baso # (Auto) 100 ABG Sample Site Right radial ABG pH 7.28 L* ABG pCO2 43.4 ABG pO2 61 L ABG HCO3 21 L ABG Total CO2 22 L ABG O2 Saturation 88 L ABG Base Excess -6.0 L FiO2 52 Sodium 138 Potassium 3.8 Chloride 104 Carbon Dioxide 24 BUN 24 H Creatinine 1.21 Estimated GFR > 60 BUN/Creatinine Ratio 19.8 Glucose 303 H Lactate 5.1 H* Calcium 8.6 Total Bilirubin 1.4 H AST 48 ALT 24 Alkaline Phosphatase 118 Total Creatine Kinase 88 Troponin I 0.104 H Total Protein 6.6 Albumin 4.0 Globulin 2.6 Albumin/Globulin Ratio 1.5 Lipase 120 Chlamy pneumoniae PCR Not detected Adenovirus (PCR) Not detected B.parapertussis DNA PCR Not detected Coronavirus OC43 (PCR) Not detected Coronavirus HKU1 (PCR) Not detected Coronavirus 229E (PCR) Not detected SARS-CoV-2 (PCR) Not detected Coronavirus NL63 (PCR) Not detected Human Metapneumovir PCR Detected H Influenza Type A (PCR) Not detected Influenza Type B (PCR) Not detected M. pneumoniae (PCR) Not detected Parainfluenza 1 (PCR) Not detected Parainfluenza 2 (PCR) Not detected Parainfluenza 3 (PCR) Not detected Parainfluenza 4 (PCR) Not detected RSV (PCR) Not detected Entero/Rhino (PCR) Not detected Assessment & Plan Assessment & Plan narrative: 1. Metapneumovirus pulmonary infection, present on admission and active. 2. Possible bacterial pneumonia, secondary. Present on admission and active. 3. Acute hypoxic respiratory failure requiring BiPAP in the emergency department, present on admission and active. 4. Severely diminished eyesight, present on admission and active. 5. Severe hearing loss, present on admission and active. 6. Developmental delay, present on admission and active. Plan: -DNR DNI. -BiPAP support, wean as able. -oxygen support, wean as able. -ceftriaxone azithromycin for possible bacterial pneumonia. Blood cultures. -droplet isolation for metapneumovirus. -managing CCU for the 1st 24 hours. Patient was DNR, DNI. Fariba is his guardian, family member and [id number]. There is an expectation of medical necessity for 2 midnights hospital stay. He was admitted inpatient status. Time Spent With Patient Time with patient: 30 to 49 minutes with 50% spent counseling/coordinating care Quality VTE Deep Vein Thrombosis/Pulmonary Embolism Present on Admission: No MIPS - Admit I confirm the patient?s Advance Care Plan is present, Code status is documented, Surrogate decision maker is in patient?s record [If Yes, STOP here]: Yes MIPS - Meds 'Current medications' to include all prescriptions, kmqd-woy-vqgjpie products, herbals, cannabis/cannabidiol products, and vitamin/mineral/dietary (nutritional) supplements. I have utilized all available resources to obtain, update, or review the patient?s current medications. [If Yes, STOP here]: Yes
[2024-03-11] MEDS: HEPARIN 5,000 UNIT/ML VIAL 5000 UNIT SUBCUT ×2 (14:16→20:37)
[2024-03-11] MEDS: DEXTROSE 5%-0.9% NS 1,000 ML 100 ML IV ×2 (14:16→23:50)
[2024-03-11 14:19] LABS: Lactate 2HR (Lactic Acid Rflx) 1.8 mmol/L (0.7-2.1)
[2024-03-11] MEDS: ACETAMINOPHEN 325 MG TABLET PO (20:37)
[2024-03-11] MEDS: FAMOTIDINE 20 MG/2 ML VIAL IV (20:37)
[2024-03-12] VITALS (44 sets, daily range): BP systolic 156–193; BP diastolic 75–120; PULSE 55–115; RESP 14–50; TEMP 36.7–37.2; O2SAT 88–100
[2024-03-12 05:02] LABS: Add Manual Diff / Slide Review NO; Basophils Absolute Auto 100 /uL (0-100); Basophils Percent Auto 0.9 % (0-2); Eosinophils Absolute Auto 0 /uL (0-450); Eosinophils Percent Auto 0.5 % (2-4); Hematocrit 41.3 % (41-53); Hemoglobin 14.2 g/dL (13.5-17.5); Lymphocytes Absolute Auto 1000 /uL (1100-4500); Mean Corpuscular HGB Conc 34.4 % (30-36); Mean Corpuscular Hemoglobin 31.5 PG (26-34); Mean Corpuscular Volume 91.7 fL (80-100); Monocytes Absolute Auto 700 /uL (0-900); Monocytes Percent Auto 11.9 % (3-14); Neutrophils Absolute Auto 3800 /uL (1500-7000); Neutrophils Percent Auto 68.7 % (50-75); Platelet Count 138 X10^3/uL (150-400); Red Cell Distribution Width 13.8 % (11.6-14.8); White Blood Cell Count 5.5 X10^3/uL (4.5-11.0)
[2024-03-12] MEDS: ALBUTEROL 2.5 MG/3 ML NEB (ADULT) INH ×2 (05:21→10:39)
[2024-03-12] MEDS: GUAIFENESIN/DM 200/20 MG/10 ML UDC 5 ML PO (05:30)
[2024-03-12 06:11] LABS: BUN Creatinine Ratio 23.2 (6-22); Blood Urea Nitrogen 19 mg/dL (9-20); Calcium 8.4 mg/dL (8.4-10.2); Carbon Dioxide 27 mmol/L (22-32); Chloride 114 mmol/L (98-107); Estimated Glomerular Filt Rate > 60 mL/min (>60); Glucose 49 mg/dL (80-110); HEMOLYSIS < 15 (0-50); Potassium 3.8 mmol/L (3.4-5.1); Sodium 145 mmol/L (137-145)
--- NOTE | 2024-03-12 07:06 | PC.NURSE ---
shift leader RN note pt resting most of the night, O2 sats were >92% on RA, 0400 pt started coughing frequently, MD notified and order for prn cough syrup with min effect, 1L NC applied, coarse lung sounds and expiratory wheezes, prn breathing treatment given by RT AM labs showed CBG 49, pt awake and talking, juice given, CBG rechecked 74
[2024-03-12] MEDS: DEXTROSE 5%-0.9% NS 1,000 ML 100 ML IV (09:26)
[2024-03-12] MEDS: HEPARIN 5,000 UNIT/ML VIAL 5000 UNIT SUBCUT ×2 (09:27→20:21)
[2024-03-12] MEDS: CODEINE/GUAIFENESIN LIQUID 5ML UDC 5 ML PO ×2 (10:21→20:21)
[2024-03-12] MEDS: FLUTICASONE 120 SPRAY/16 GM SPRAY.SUSP NASAL ×2 (10:46→20:22)
[2024-03-12] MEDS: AMOXICILLIN/CLAV 875/125 MG 1 TAB PO ×2 (10:46→20:21)
[2024-03-12] MEDS: FAMOTIDINE 20 MG/2 ML VIAL IV ×2 (10:46→20:21)
[2024-03-12] MEDS: FUROSEMIDE 40 MG/4 ML VIAL 20 MG IV (13:12)
--- NOTE | 2024-03-12 13:59 | P.PN_ITS ---
Subjective Subjective Interval history: 78 M admitted with hypoxic respiratory failure and metapneumoviral infection. Feels the same today. Continued cough, still feels short of breath though hypoxia is improved this morning. Exam Vital Signs (past 8 hours): - 03/12/24 06:00 03/12/24 06:00 03/12/24 06:30 Temperature Pulse Rate 86 90 Respiratory Rate 24 24 Blood Pressure 169/84 H Pulse Oximetry 97 97 Oxygen Delivery Method 03/12/24 07:00 03/12/24 07:00 03/12/24 07:00 Temperature Pulse Rate 87 Respiratory Rate 31 H Blood Pressure 162/83 H Pulse Oximetry 95 Oxygen Delivery Method Room Air 03/12/24 07:30 03/12/24 08:00 03/12/24 08:00 Temperature 98.7 F Pulse Rate 98 H 106 H Respiratory Rate 34 H 44 H Blood Pressure 174/92 H Pulse Oximetry 100 98 Oxygen Delivery Method 03/12/24 08:30 03/12/24 09:00 03/12/24 09:00 Temperature Pulse Rate 101 H 91 H Respiratory Rate 34 H 25 H Blood Pressure 156/83 H Pulse Oximetry 96 97 Oxygen Delivery Method 03/12/24 09:30 03/12/24 10:00 03/12/24 10:00 Temperature Pulse Rate 93 H 90 Respiratory Rate 25 H 34 H Blood Pressure 162/89 H Pulse Oximetry 99 99 Oxygen Delivery Method 03/12/24 10:30 03/12/24 10:40 Temperature Pulse Rate 92 H 96 H Respiratory Rate 28 H 22 Blood Pressure Pulse Oximetry 99 98 Oxygen Delivery Method Room Air Fraction of Inspired Oxygen 21 SaO2/FiO2 Ratio 457 Oxygen Delivery Method Room Air Oxygen Flow Rate 2 Narrative Exam Narrative: NAD, alert and calm on BiPAP. Normocephalic skull, EOMI, anicteric sclera, symmetric pupils. Oropharynx unremarkable, no droop. Neck supple, midline trachea, no adenopathy. Lungs notable for some scattered rhonchi and wheezing. He has a normal rate and effort on BiPAP. Heart regular, no murmur gallop or rub. Abdomen is soft, non distended and non tender. Extremities are free of edema. Skin is free of rash or lesions. Joints are not swollen or deformed. Objective Labs 03/12/24 04:40 03/12/24 04:40 Labs: Laboratory Results - last 24 hr 03/11/24 03/12/24 14:00 04:40 WBC 5.5 D RBC 4.50 Hgb 14.2 Hct 41.3 MCV 91.7 D MCH 31.5 MCHC 34.4 RDW 13.8 Plt Count 138 L Neut % (Auto) 68.7 Lymph % (Auto) 18.0 L [place] % (Auto) 11.9 Eos % (Auto) 0.5 L Baso % (Auto) 0.9 Neut # (Auto) 3800 Lymph # (Auto) 1000 L [place] # (Auto) 700 Eos # (Auto) 0 Baso # (Auto) 100 Sodium 145 Potassium 3.8 Chloride 114 H Carbon Dioxide 27 BUN 19 Creatinine 0.82 Estimated GFR > 60 BUN/Creatinine Ratio 23.2 H Glucose 49 L D Lactate 1.8 Calcium 8.4 PFSH Medical History Hyperglycemia Hypoglycemia Physician orders for life-sustaining treatment (POLST) form indicates patient wish for [id number] status Cognitive developmental delay Screening for hyperlipidemia Hypothyroidism (acquired) History of blood transfusion (~2009) Partial blindness (1945) Developmental disorder (1945) Hemorrhoids (~2009) Glaucoma (1945) Hearing loss (1945) Surgical History History of colonoscopy (01/12/12) History of eye surgery Family History Father Diabetes mellitus Mother Cancer Leukemia Hypertension Sister Age: 80 Stroke Hemorrhagic stroke Melanoma Sister No problems noted. Sister No problems noted. Social History household members: family Smoking Status: Never smoker Assessment & Plan Assessment & Plan narrative: 1. Metapneumovirus pulmonary infection, present on admission and active. 2. Possible bacterial pneumonia, secondary. Present on admission and active. 3. Acute hypoxic respiratory failure requiring BiPAP in the emergency department, present on admission and active. 4. Severely diminished eyesight, present on admission and active. 5. Severe hearing loss, present on admission and active. 6. Developmental delay, present on admission and active. Plan: -oxygen support, wean as able with goal O2 >90% on room air -ceftriaxone azithromycin for possible bacterial pneumonia, can change to augmentin today for empiric coverage as able to tolerate PO medications. Blood cultures are without growth. -droplet isolation for metapneumovirus. Patient was DNR, DNI. Fariba is his guardian, family member and [id number]. He was admitted inpatient status. Likely discharge home in 1-2 days. Quality VTE Deep Vein Thrombosis/Pulmonary Embolism Present on Admission: No
--- NOTE | 2024-03-12 15:54 | CM.DANOTE ---
Patient is a 78 yo male who was admitted INPT status on 03/11/24 for Metapneumo Virus/Pneumonia. Pt has [facility] and [facility] for insurance and his PCP is Dr. Jimenez. EMR was reviewed. Per MD, pt admitted for hypoxia and IV-Abx and not yet stable for discharge. SW met bedside with pt, blind and deaf, and his niece/legal Guardian Heidi ([phone]) and she confirms that pt lives with her and her family in [place] and has for the past 12 years. Pt has developmental delay, mostly blind, and mostly deaf but is strong in his mobility with no need for DME for ambulation and able to manage most of his ADLs independently. Niece denies any other supportive services in place at this time and preference is for pt to d/c home when stable and she does not anticipate any PT needs or HH as she has observed pt get up to BSC in the hospital and feels they can easily manage pt at home once his cough and respiratory distress resolved. Plan: SW to follow closely to confirm safe plan of home with niece and family once medically stable and any further identified discharge planning needs. MARY Coyle Discharge Planning/Care Management CM Discharge Assessment Start: 03/12/24 15:53 Freq: Status: Active Protocol: Document 03/12/24 15:53 BF (Rec: 03/12/24 15:54 BF [id number]) Discharge Planning Assessment Assigned Insole Buffer MARY Winchester DPOA/Assigned Designee Name Guardian is nihortensia Gordon Contact Information [phone] Advance Directives? Yes: Yes; POLST Advance Directives on File Yes History Provided By Patient,Family Member,Medical Record Has Patient been admitted in last 30 No days? Prior Living Arrangements House Household Members family Type of transporation used prior to Relies on Others admit Independent with ADL's Yes Is patient alert and oriented? No: DD at baseline Needs Assistance With Meal Prep,Managing Medications ,Home Chores / Shopping Caregiver for Another No Barriers to Discharge No Discharge Plan Home Transportation Arrangement family Referrals Initiated None needed Whiteboard Updated in Patient Room with Yes name and ext. # of Insole Buffer Review Status In Process Please Provide Date Initial DC 03/12/24 Assessment Was Performed Next Review Type Continued Stay Review
--- NOTE | 2024-03-13 01:04 | PC.NURSE ---
Patient BG 62, asymptomatic, given 8 oz milk and 1/2 PBJ sandwich.
[2024-03-13] MEDS: GUAIFENESIN/DM 200/20 MG/10 ML UDC 5 ML PO (02:37)
[2024-03-13 04:27] VITALS: BP 173/80; PULSE 98; RESP 19; TEMP 36.1; O2SAT 97
[2024-03-13 05:03] LABS: Add Manual Diff / Slide Review NO; Basophils Absolute Auto 0 /uL (0-100); Basophils Percent Auto 0.8 % (0-2); Eosinophils Absolute Auto 100 /uL (0-450); Eosinophils Percent Auto 1.4 % (2-4); Hematocrit 39.9 % (41-53); Hemoglobin 14.1 g/dL (13.5-17.5); Lymphocytes Absolute Auto 900 /uL (1100-4500); Lymphocytes Percent Auto 18.2 % (25-40); Mean Corpuscular HGB Conc 35.3 % (30-36); Mean Corpuscular Hemoglobin 31.6 PG (26-34); Mean Corpuscular Volume 89.5 fL (80-100); Monocytes Absolute Auto 600 /uL (0-900); Neutrophils Absolute Auto 3200 /uL (1500-7000); Neutrophils Percent Auto 66.6 % (50-75); Platelet Count 131 X10^3/uL (150-400); Red Blood Cell Count 4.46 X10^6/uL (4.5-5.9); Red Cell Distribution Width 13.2 % (11.6-14.8); White Blood Cell Count 4.8 X10^3/uL (4.5-11.0)
[2024-03-13 05:21] LABS: BUN Creatinine Ratio 19.6 (6-22); Blood Urea Nitrogen 18 mg/dL (9-20); Calcium 8.5 mg/dL (8.4-10.2); Carbon Dioxide 27 mmol/L (22-32); Chloride 110 mmol/L (98-107); Estimated Glomerular Filt Rate > 60 mL/min (>60); Glucose 69 mg/dL (80-110); HEMOLYSIS < 15 (0-50); Potassium 3.4 mmol/L (3.4-5.1); Sodium 140 mmol/L (137-145)
--- NOTE | 2024-03-13 07:49 | P.DS_ITS ---
History of Present Illness History of Present Illness Date Patient Seen: 03/13/24 Time Patient Seen: 07:49 Chief complaint: Diff Breathing, Resp Inf Narrative: The patient is brought in by his family member who is his guardian and power of grades 6 through 8 teacher. He was a 78-year-old male with history of developmental delay. He became ill with a cold and upper respiratory symptoms about 5 days ago. Initially he had a cough and no dyspnea. His energy level is fairly normal for the next 2 days. Over the last day and a half he has had progressive dyspnea and more fatigue. He also had audible wheezing prompting a visit to the urgent care 2 days ago. He was given steroids there and a breathing treatment and discharged with steroids and a bronchodilator. He has had worsening fatigue and respiratory status over the last 24 hours. He has had cough which has been productive of phlegm and audible wheezing. He was brought to the urgent care today but enroute became much more distressed and family rerouted to the emergency department. There he was placed on BiPAP. His guardian does confirm that he was do not resuscitate and do not intubate. She was okay with BiPAP and other supportive measures such as antibiotics and IV fluids. In the emergency department, he improved dramatically on BiPAP and was given bronchodilators. Upon being transferred to CCU he was very comfortable and relaxed on BiPAP and in no distress. PCR was positive for metapneumovirus and he was started on ceftriaxone and azithromycin for possible bacterial pneumonia. Chest x-ray revealed bilateral infiltrates. He was very hard of hearing and essentially blind and does not provide any history. No additional review of systems is available other than noting he has not had fevers or diarrhea. Discharge Providers Provider Date of admission: 03/11/24 13:00 Discharge Date: 03/13/24 Primary care physician: Jose Jimenez DO Discharge provider: Andrey Russell DO Summary Hospital Course Discharge Diagnosis: 1. Metapneumovirus pulmonary infection, present on admission and active. 2. Possible bacterial pneumonia, secondary. Present on admission and active. 3. Acute hypoxic respiratory failure requiring BiPAP in the emergency department, present on admission and active. 4. Severely diminished eyesight, present on admission and active. 5. Severe hearing loss, present on admission and active. 6. Developmental delay, present on admission and active. Hospital Course: This is a 78 year old male with developmental delay and severe hearing and vision loss admitted with acute respiratory failure with hypoxia due to metapneumoviral pneumonia and probable bacterial pneumonia superimposed. He was started on antibiotics and given some nebulizer treatments with some improvement. He was able to be weaned from supplemental oxygen and was discharged home. He will complete antibiotic course at home, and nebulizer machine was sent to his pharmacy as it seemed to work better for him than inhalers at home. Time Spent with Patient Time spent: Less than 30 minutes Exam Vital Signs (past 8 hours): - 03/13/24 04:27 Temperature 96.9 F L Pulse Rate 98 H Respiratory Rate 19 Blood Pressure 173/80 H Pulse Oximetry 97 Fraction of Inspired Oxygen 24 SaO2/FiO2 Ratio 404 Oxygen Delivery Method Nasal Cannula Oxygen Flow Rate 1 Narrative Exam Narrative: NAD, alert and calm on room air. Lungs CTA B/l today Heart regular, no murmur gallop or rub. Extremities are free of edema. Skin is free of rash or lesions. Joints are not swollen or deformed. Objective Labs 03/13/24 04:25 03/13/24 04:25 Labs: Laboratory Results - last 24 hr 03/13/24 04:25 WBC 4.8 RBC 4.46 L Hgb 14.1 Hct 39.9 L MCV 89.5 MCH 31.6 MCHC 35.3 RDW 13.2 Plt Count 131 L Neut % (Auto) 66.6 Lymph % (Auto) 18.2 L [place] % (Auto) 13.0 Eos % (Auto) 1.4 L Baso % (Auto) 0.8 Neut # (Auto) 3200 Lymph # (Auto) 900 L [place] # (Auto) 600 Eos # (Auto) 100 Baso # (Auto) 0 Sodium 140 Potassium 3.4 Chloride 110 H Carbon Dioxide 27 BUN 18 Creatinine 0.92 Estimated GFR > 60 BUN/Creatinine Ratio 19.6 Glucose 69 L Calcium 8.5 [facility] Medical History Hyperglycemia Hypoglycemia Physician orders for life-sustaining treatment (POLST) form indicates patient wish for dh-ubj-abipezyvopj status Cognitive developmental delay Screening for hyperlipidemia Hypothyroidism (acquired) History of blood transfusion (~2009) Partial blindness (1945) Developmental disorder (1945) Hemorrhoids (~2009) Glaucoma (1945) Hearing loss (1945) Surgical History History of colonoscopy (01/12/12) History of eye surgery Family History Father Diabetes mellitus Mother Cancer Leukemia Hypertension Sister Age: 80 Stroke Hemorrhagic stroke Melanoma Sister No problems noted. Sister No problems noted. Social History household members: family Smoking Status: Never smoker Discharge Plan Discharge Plan Patient Disposition: Home Provider Discharge Comment: You were admitted to the hospital with low oxygen, likely due to viral and possibly bacterial pneumonia. Continue antibiotics for a few more days, and cough syrup was provided. Nebulizer machine and albuterol was also sent to your pharmacy. Glad you are feeling better! Discharge orders & Medications Prescriptions: New amoxicillin-pot clavulanate 875-125 mg Tablet 1 tab PO BID 4 Days Qty: 8 0RF codeine-guaifenesin 10-100 mg/5 mL Liquid 5 ml PO Q6H PRN (Reason: Cough) 7 Days Qty: 120 0RF (DME) nebulizer and compressor Device See Rx Instructions .Route Qty: 1 0RF Rx Instructions: One nebulizer and compressor for albuterol administration albuterol sulfate 2.5 mg /3 mL (0.083 %) solution for nebulization 2.5 mg inhalation Q4-6H PRN (Reason: shortness of breath or wheezing) 30 Days Qty: 90 0RF Continued glucagon 3 mg/actuation spray,non-aerosol 3 mg intranasal ONCE Qty: 2 0RF Rx Instructions: as a single dose levothyroxine 25 mcg tablet 25 mcg PO DAILY Qty: 90 0RF Rhopressa 0.02 % drops 1 drp ophthalmic (eye) BEDTIME brimonidine-timolol [Combigan] 0.2-0.5 % drops 1 drp ophthalmic (eye) BID dorzolamide 2 % drops 1 drp EYE-BOTH TID latanoprost [Xalatan] 0.005 % drops 1 drp ophthalmic (eye) BEDTIME No Action albuterol sulfate 90 mcg/actuation HFA aerosol inhaler 1 - 2 puff inhalation Q4H PRN (Reason: Shortness Of Breath Or Wheezing) Rhopressa 0.02 % drops EYE-BOTH Follow up/Referrals: Jose Jimenez, [Primary Care Provider] - Diet/Activity/Treatments Diet: Diet as Tolerated and Regular Diet comment: As tolerated, no restrictions Activity: As tolerated, no restrictions Visit Report/Discharge Packet Stand Alone Forms: Patient Portal/API, Stroke Signs & Symptoms Discharge Data Primary Care Provider: Jose Jimenez Quality VTE Deep Vein Thrombosis/Pulmonary Embolism Present on Admission: No
[2024-03-13] MEDS: FAMOTIDINE 20 MG/2 ML VIAL IV (08:04)
[2024-03-13] MEDS: AMOXICILLIN/CLAV 875/125 MG 1 TAB PO (08:04)
[2024-03-13] MEDS: FLUTICASONE 120 SPRAY/16 GM SPRAY.SUSP NASAL (08:05)
--- NOTE | 2024-03-13 08:32 | CM.DPC ---
DCP Cont. Reviewed EMR and team rounds for status updates. Pt has been medically cleared for home d/c, his niece is here bedside and will transport him home this morning. No further DCP needs indicated at this time.
== END 2024-03-13 09:44 | disposition home or self-care (01) | DRG 871 ==
LOC: ED 11:40 → AC 13:02 → ICU 13:24
PROVIDERS: Admitting Provider Hospitalist; Emergency Provider Emergency Medicine; Family Provider Family Medicine; PCP Family Medicine; Referring Provider Emergency Medicine; Visit Provider Hospitalist
DX: A41.9 Sepsis, unspecified organism (principal); J12.3 Human metapneumovirus pneumonia; J96.01 Acute respiratory failure with hypoxia; J15.9 Unspecified bacterial pneumonia; Z66 Do not resuscitate; R65.20 Severe sepsis without septic shock; R62.50 Unspecified lack of expected normal physiological development in childhood; H91.90 Unspecified hearing loss, unspecified ear; H54.7 Unspecified visual loss; E03.9 Hypothyroidism, unspecified
CPT/HCPCS: 36415; 36600; 71045; 80048; 80053; 82550; 82805; 83605; 83690; 84484; 85025; 87040; 87633; 94640; 94762; 96365; 96368; 99284; 99291; 99292; J0696; J1644; J1940; J7613

== ENCOUNTER → 2024-12-20 16:31 | Outpatient (CLI) | payer MEDICARE, MEDICAID, SELFPAY ==
[2024-03-11 13:38] VITALS: BMI 27.1
[2024-03-11 14:33] VITALS: PULSE 105; RESP 35; O2SAT 33
[2024-12-20 18:27] LABS: Alanine Aminotransferase 16 IU/L (<50); Albumin 4.1 g/dL (3.5-5.0); Albumin Globulin Ratio 1.6 (1.0-2.8); Alkaline Phosphatase 107 U/L (38-126); Aspartate Aminotransferase 25 IU/L (17-59); BUN Creatinine Ratio 22.2 (6-22); Blood Urea Nitrogen 28 mg/dL (9-20); Calcium 9.2 mg/dL (8.4-10.2); Carbon Dioxide 29 mmol/L (22-32); Chloride 102 mmol/L (98-107); Estimated Glomerular Filt Rate 58 mL/min (>60); Globulin 2.5 g/dL (1.7-4.1); HEMOLYSIS < 15 (0-50); Potassium 4.1 mmol/L (3.4-5.1); Sodium 140 mmol/L (137-145); Total Protein 6.6 g/dL (6.3-8.2)
[2024-12-20 18:57] LABS: TSH w/ Reflex to FT4 3.47 uIU/mL (0.47-4.68)
[2024-12-20 18:59] LABS: Glucose 32 mg/dL (80-110)
== END ==
LOC: LAB 16:32
PROVIDERS: Family Provider Family Medicine; PCP Family Medicine; Referring Provider Family Medicine; Visit Provider Family Medicine
DX: E03.9 Hypothyroidism, unspecified (principal); E16.2 Hypoglycemia, unspecified; I50.9 Heart failure, unspecified
CPT/HCPCS: 36415; 80053; 84443